=== PATIENT | male | born 1960 | race Caucasian/White ===

== ENCOUNTER 2016-11-11 09:07 | Emergency (ER) | payer BC ==
[2016-11-11] MEDS ORDERED: KETOROLAC TROMETHAMINE 30 MG/ML VIAL IV ONE (09:50)
[2016-11-11] MEDS ORDERED: KETOROLAC TROMETHAMINE 30 MG/ML VIAL ONE (09:50)
[2016-11-11 09:52] LABS: Hematocrit 47.2 % (42.0-52.0); Mean Cell Volume 86.6 fl (78-100); Mean Corpuscular Hemoglobin 31.2 pg (27-31); Mean Platelet Volume 9.3 fl (6.0-9.5); Platelet Count 246 K/mm3 (150-450); Red Blood Count 5.45 M/mm3 (4.7-6.0); Red Cell Distribution Width 12.2 % (11.5-14.0); White Blood Count 6.5 K/mm3 (4.0-10.5)
[2016-11-11 09:54] LABS: Total Cells Counted 100
[2016-11-11 09:55] LABS: Prothrombin Time (Patient) 11.3 Seconds (9.4-11.4)
[2016-11-11 09:57] LABS: INR 1.09 INR (0.90-1.10); Partial Thrombolplastin Time 27.1 Seconds (24-32)
[2016-11-11 10:02] LABS: ALT 33 U/L (19-67); AST 18 U/L (0-48); Alkaline Phosphatase * 82 U/L (50-170); BUN/Creatinine Ratio 15.1 (9.0-21.6); Bilirubin, Total 1.6 mg/dL (0.0-1.1); Blood Urea Nitrogen 18 mg/dL (6-23); Ca. Corrected For Albumin 8.7 mg/dL (8.4-10.2); Carbon Dioxide 25.2 mmol/L (24-32.6); Chloride 101 mmol/L (97-106); Glucose * 94 mg/dL (70-110); Potassium 4.2 mmol/L (3.4-4.6); Sodium 138 mmol/L (132-142); Total Protein 8.2 gm/dL (6.2-8.2)
[2016-11-11 10:03] LABS: Troponin I Less than 0.017 ng/ml (0.00-0.10)
[2016-11-11 10:13] LABS: Atypical (Reactive) Lymph 2 % (0-2); Eosinophil 4 % (0-3); Lymphocyte 29 % (20-51); Monocyte 5 % (0-9); Neutrophil 60 % (42-75); Neutrophil # 3.9 K/mm3 (1.3-6.0); Platelet Estimate Normal (NORMAL); RBC Morphology Normal (NORMAL)
--- NOTE | 2016-11-11 10:18 | ERNOTE ---
Chest Pain/Cardiac HPI Chief Complaint: Chest Pain Time Seen by Provider: 11/11/16 09:45 Source: patient Exam Limitations: no limitations Immunizations: IMMUNIZATION HX History of Influenza Vaccine No Hx Pneumococcal Vaccination No Allergies/Adverse Reactions: Allergies Sulfa (Sulfonamide Antibiotics) Allergy (Verified 11/11/16 09:22) Home Medications: HOME MEDICATIONS Naproxen [Naprosyn] 500 mg PO BID #60 tablet 11/11/16 [Last Taken Unknown] Narrative: Patient tripped over his dog last night at about 9:00 in the evening and twisted awkwardly straining his left upper chest. While he only had minimal pain when he went to bed he woke up at about 2:00 this morning with moderate to severe left-sided chest pain that was worse with deep breath and palpation. Pain persists on both palpation and deep breath to this point. Timing: constant Severity/Quality: moderate Location: left chest Chest Pain Radiation: no radiation Activities at Onset: other - tripping and straining his chest Modifying Factors - Improves: Present: nothing Modifying Factors - Worsens: Present: breathing, other - palpation Associated Symptoms: Present: denies symptoms Prior Chest Pain/Cardiac Workup: Reports: no prior cardiac workup Review of Systems - Review of Systems Constitutional: Present: See HPI EYE: Present: no symptoms reported ENT: Present: no symptoms reported Respiratory: Present: no symptoms reported Cardiology: Present: chest pain Gastrointestinal/Abdominal: Present: no symptoms reported Genitourinary: Present: no symptoms reported Musculoskeletal: Present: no symptoms reported Skin: Present: no symptoms reported Neurological: Present: no symptoms reported Endocrine: Present: no symptoms reported Hematologic/Lymphatic: Present: no symptoms reported Psych: Present: no symptoms reported - Patient's Past Medical History Patient History - Medical: No pertinent hx, Other Patient History - Cardiac/Respiratory: No pertinent hx Patient History - Cancer: No Hx of Cancer Patient History - Surgical Procedures: T & A Patient History - Other: None - Social History Living Situations: home Psych History: No pertinent hx Smoking Status: Never smoker Alcohol Use: occasionally Drug Use: none - Immunizations Hx Pneumococcal Vaccination: No History of Influenza Vaccine: No Physical Exam - Physical Exam General Appearance: Present: wd/wn, alert, moderate distress Head Exam: Present: normal inspection Eye Exam: Normal inspection: bilateral, PERRL: bilateral Ears, Nose, Throat: Present: normal ENT inspection, H, normal pharynx Neck: Present: normal inspection, nontender Respiratory: Present: no respiratory distress, normal breath sounds, no accessory muscle use, lungs clear, chest tenderness Cardiovascular/Chest: Present: regular rate, rhythm, no murmur, normal peripheral pulses Gastrointestinal/Abdominal: Present: normal bowel sounds, nontender, nondistended, soft, no organomegaly Rectal Exam: Present: deferred Back Exam: Present: normal inspection, normal range of motion Extremity Exam: Present: normal inspection, non-tender, no edema, normal range of motion Neurological Exam: Present: alert, oriented, normal mood/affect Skin Exam: Present: normal color, warm/dry Lymphatic Exam: Present: no adenopathy ED Progress - Results and Orders Patient's Lab Results:: I have reviewed the patient's lab results. - Vital Signs Patient's Vital Signs:: I have reviewed the patient's vital signs. Vital Signs: Vital Signs 11/11/16 11/11/16 11/11/16 09:07 09:12 09:38 Temperature 36.5 C Pulse Rate 96 88 Respiratory 12 16 Rate Blood Pressure 154/91 140/90 150/96 O2 Sat by Pulse 99 95 Oximetry 11/11/16 09:56 Temperature Pulse Rate 82 Respiratory 12 Rate Blood Pressure 152/92 O2 Sat by Pulse 96 Oximetry - EKG EKG: NSR - X-Ray X-Ray #1 X-Ray: chest Interpretation: Reviewed by me - Progress/Reassessment Chief Complaint: Chest Pain Progress:: Improved Plan - Plan Plan: Patient was given a dose of Toradol here in the ED impression early improvement being noted. Patient was told that he has strained his chest wall and likely has a component of costochondritis and that it will likely take 4-6 weeks for her to be completely resolved. Patient will be given a prescription for Naprosyn, minimal lifting or physical exertion and follow-up with his family physician as needed. Departure - Departure Clinical Impression: Strain of chest wall Qualifiers: Encounter type: initial encounter Qualified Code(s): S29.011A - Strain of muscle and tendon of front wall of thorax, initial encounter Disposition: Home self-care Condition: Good Instructions: Chest Wall Pain, [id number] Prescriptions: Naproxen [Naprosyn] 500 mg PO BID #60 tablet
[2016-11-11 10:31] VITALS: BP 136/85
== END 2016-11-11 10:32 | disposition home or self-care (01) ==
LOC: ER 09:07
DX: S29.011A Strain of muscle and tendon of front wall of thorax, initial encounter (principal); W01.0XXA Fall on same level from slipping, tripping and stumbling without subsequent striking against object, initial encounter

== ENCOUNTER 2017-01-30 10:40 | Emergency (ER) | payer BC ==
[2017-01-30 10:52] VITALS: BP 135/99
[2017-01-30] MEDS ORDERED: DIPHTH,PERTUSS(ACELL),TET VAC 0.5 ML VIAL IM ONE ×2 (10:52→11:32)
--- NOTE | 2017-01-30 11:11 | ERNOTE ---
Animal Bite ER Date of Service: 01/30/17 Presenting Symptoms: bitten Time Seen by Provider: 01/30/17 10:42 Source: patient Exam Limitations: no limitations Immunizations: IMMUNIZATION HX Immunizations Up to Date No History of Influenza Vaccine No Hx Pneumococcal Vaccination No Allergies/Adverse Reactions: Allergies Sulfa (Sulfonamide Antibiotics) Allergy (Verified 01/30/17 10:51) Home Medications: HOME MEDICATIONS Amox Tr/Potassium Clavulanate [Augmentin 875-125 Tablet] 875 mg PO Q12H #20 tab 01/30/17 [Last Taken Unknown] Narrative: Pt. comes in with c/o being bitten by his dog when he reached for his collar just prior to arrival. Pt. denies any fever, SOB, CP, NVD, recent illness or injury and does not know when his last Tdap was Pt. has documentation of dogs last vaccines and health report by vet. Onset Time: [employer] Location of Incident: Reports: home Animal Type: Reports: dog Animal Appearance: healthy Animal's Immunization Status: Reports: UTD Observation/Capture: Reports: animal known Context of Attack: Reports: approached animal Severity of injury: Reports: bitten Location of Injury: Reports: upper extremity (R) Associated symptoms: Reports: pain on movement. Denies: numbness distally Prior Treatment: Denies: recently seen, treated by physician, recently hospitalized, currently on antibiotics Review of Systems - Review of Systems Constitutional: Present: no symptoms reported. Absent: fever, chills, weakness , fatigue, malaise EYE: Present: no symptoms reported ENT: Present: no symptoms reported Respiratory: Present: no symptoms reported. Absent: shortness of breath, cough , wheezing Cardiology: Present: no symptoms reported. Absent: chest pain, palpitations, edema Gastrointestinal/Abdominal: Present: no symptoms reported. Absent: nausea, vomiting, diarrhea, abdominal pain Genitourinary: Present: no symptoms reported Musculoskeletal: Present: joint pain Skin: Present: other - 4 puncture wounds R cary and dorsal surface of hand Neurological: Present: no symptoms reported. Absent: headache, dizziness/light- headedness, weakness, numbness Endocrine: Present: no symptoms reported All Other Systems: All systems neg except as marked - Patient's Past Medical History Patient History - Medical: No pertinent hx, Other Patient History - Cardiac/Respiratory: No pertinent hx Patient History - Cancer: No Hx of Cancer Patient History - Surgical Procedures: T & A Patient History - Other: None - Social History Psych History: No pertinent hx - Immunizations Immunizations Up to Date: No Hx Pneumococcal Vaccination: No History of Influenza Vaccine: No Physical Exam - Physical Exam General Appearance: Present: wd/wn, alert, no apparent distress Head Exam: Present: normal inspection, no evidence of injury Eye Exam: Normal inspection: bilateral, PERRL: bilateral, EOMI: bilateral Ears, Nose, Throat: Present: normal ENT inspection, normal pharynx Neck: Present: normal inspection, nontender, supple, full range of motion Respiratory: Present: no respiratory distress, normal breath sounds, no accessory muscle use, chest nontender, lungs clear Cardiovascular/Chest: Present: regular rate, rhythm, no murmur, normal peripheral pulses Back Exam: Present: normal inspection Extremity Exam: Present: normal range of motion, bony tenderness - R hand, other - 4 puncture mccarthy 0.2cm in width largest 0.5cm in length open not approximated scant sanguinous drainage Neurological Exam: Present: alert, oriented, normal mood/affect, no motor/ sensory deficits Skin Exam: Present: normal color, warm/dry, other - see above. Absent: pallor, skin rash ED Progress - Vital Signs Patient's Vital Signs:: I have reviewed the patient's vital signs. Vital Signs: Vital Signs 01/30/17 10:45 Temperature 36.7 C Pulse Rate 108 H Respiratory 16 Rate Blood Pressure 135/99 O2 Sat by Pulse 93 Oximetry - X-Ray X-Ray #1 X-Ray: hand Interpretation: Reviewed by me X-ray Comments: no obvious acute osseous abnormality - Progress/Reassessment Chief Complaint: Animal Bite Progress:: Improved Departure Clinical Impression: Dog bite Qualifiers: Encounter type: initial encounter Qualified Code(s): W54.0XXA - Bitten by dog, initial encounter - Departure Disposition: Home self-care Condition: Good Instructions: Pasteurella Multocida Infection, Animal Bite Additional Instructions: Please follow up with primary provider in 2-3 days change dressing and apply neosporin every day. Prescriptions: Amox Tr/Potassium Clavulanate [Augmentin 875-125 Tablet] 875 mg PO Q12H #20 tab
== END 2017-01-30 11:53 | disposition home or self-care (01) ==
LOC: ER 10:40
DX: S61.451A Open bite of right hand, initial encounter (principal); W54.0XXA Bitten by dog, initial encounter; Y93.89 Activity, other specified; Y92.009 Unspecified place in unspecified non-institutional (private) residence as the place of occurrence of the external cause; Z23 Encounter for immunization